=== PATIENT | female | born 1945 | race Caucasian/White ===

== ENCOUNTER 2017-11-28 13:01 | Inpatient (IN) | payer BC ==
[~2017-11-28] VITALS: Ht 157.5 cm; Wt 87.3 kg
[~2017-11-28 13:01] MED LIST: ACET-1600 PO; ADAL40PE SQ; ASCO500T8 PO; ASPI-496 PO; CALC-126 PO; CELE200C PO; CLIN300C8 PO; ESOM20CA PO; HYDR10TA4 PO; LISI-167 PO; LORA10TA75 PO; MAGN400T7 PO; MAGN500C9 PO; METO10TA2 PO; MULT-717 PO; NORT10CA PO; OMEP20TA62 PO; ROSU10TA PO; TOPI50TA35 PO; TOPI50TA8 PO; TRAM50TA2 PO; estrace cream TD
[2017-11-28] MEDS ORDERED: FENTANYL PF 100 MCG/2ML ONE ×2 (13:39→18:00)
[2017-11-28] MEDS ORDERED: MIDAZOLAM 1 MG/ML, 2ML ONE (13:39)
[2017-11-28] MEDS ORDERED: LIDOCAINE GEL 2%, 5ML ONE (13:45)
[2017-11-28 13:51] VITALS: BP 134/81
[2017-11-28] MEDS ORDERED: LACTATED RINGERS 1,000 ML IV SCH (14:01)
[2017-11-28] MEDS ORDERED: OxyconTIN ER 10 MG TAB.ER PO ONE (14:30)
[2017-11-28] MEDS ORDERED: ONDANSETRON ODT 8 MG PO ONE ×2 (14:30→16:00)
[2017-11-28] MEDS ORDERED: ACETAMINOPHEN 500 MG TABLET PO ONE (14:30)
[2017-11-28] MEDS ORDERED: GABAPENTIN 300 MG CAPSULE PO ONE (14:30)
[2017-11-28] MEDS ORDERED: ROCURONIUM 10 MG/ML,10ML ONE (14:32)
[2017-11-28] MEDS ORDERED: SUCCINYLCHOLINE 20 MG/ML, 10ML ONE (14:32)
[2017-11-28] MEDS ORDERED: ROPIvacaine/PF 0.2%, 100ML 550 ML (check volume) INJ ONE (15:30)
[2017-11-28] MEDS ORDERED: ALBUTEROL/IPRATROPIUM 2.5MG/0.5MG, 3 ML NPPB PRN (16:00)
[2017-11-28] MEDS ORDERED: MEPERIDINE/PF 25MG/0.5ML IVPush PRN (16:00)
[2017-11-28] MEDS ORDERED: MIDAZOLAM 1 MG/ML, 2ML IV PRN (16:00)
[2017-11-28] MEDS ORDERED: OXYcodone 5 MG/5 ML ORAL.SOL UDC PO PRN (16:00)
[2017-11-28] MEDS ORDERED: LABETALOL 5MG/ML, 20ML IV PRN (16:00)
[2017-11-28] MEDS ORDERED: MORPHINE SULFATE 4 MG/ML, 1ML IVPush PRN (16:00)
[2017-11-28] MEDS ORDERED: FENTANYL PF 100 MCG/2ML IV PRN (16:00)
[2017-11-28] MEDS ORDERED: DIPHENHYDRAMINE 50 MG/ML, 1ML IVPush PRN (16:00)
[2017-11-28] MEDS ORDERED: PROMETHAZINE 25 MG/ML, 1ML IV PRN (16:00)
[2017-11-28] MEDS ORDERED: hydrALAzine 20 MG/ML, 1ML IV PRN (16:00)
[2017-11-28] MEDS ORDERED: EPHEDRINE 50 MG/ML, 1ML IM PRN (16:00)
[2017-11-28] MEDS ORDERED: SCOPOLAMINE PATCH, 1.5MG PATCH.TD72 TD PRN (16:00)
[2017-11-28] MEDS ORDERED: TRANEXAMIC ACID 100 MG/ML, 10ML ONE (16:44)
[2017-11-28] MEDS ORDERED: DEXAMETHASONE 4 MG/ML, 1ML ONE (17:05)
[2017-11-28] MEDS ORDERED: CEFAZOLIN 1,000 MG ONE (17:05)
[2017-11-28] MEDS ORDERED: PROPOFOL 10 MG/ML, 20ML ONE (17:05)
[2017-11-28] MEDS ORDERED: BUPIVACAINE/PF 0.5% ONE (17:05)
[2017-11-28 18:45] VITALS: BP 120/68
[2017-11-28] MEDS ORDERED: ONDANSETRON ODT 4 MG PO PRN (19:00)
[2017-11-28] MEDS ORDERED: HYDROmorphone 2 MG/ML, 1ML IV PRN (19:00)
[2017-11-28] MEDS ORDERED: HYDROcodone/APAP 5/325 TABLET PO PRN (19:00)
[2017-11-28] MEDS ORDERED: ONDANSETRON 2MG/ML, 2ML IV PRN (19:00)
[2017-11-28] MEDS ORDERED: ACETAMINOPHEN 325 MG TABLET PO PRN (19:00)
[2017-11-28] MEDS: FAMOTIDINE 20 MG TABLET PO SCH (21:00)
[2017-11-28] MEDS: SODIUM CHLORIDE FLUSH 10ML SYR IVF SCH (21:00)
[2017-11-29 00:05] VITALS: BP 105/60
[2017-11-29 04:10] VITALS: BP 91/50
[2017-11-29 06:40] VITALS: BP 115/71
[2017-11-29] MEDS ORDERED: SENNA/DOCUSATE TABLET PO SCH (09:00)
[2017-11-29] MEDS: SODIUM CHLORIDE FLUSH 10ML SYR IVF SCH (09:49)
[2017-11-29] MEDS: FAMOTIDINE 20 MG TABLET PO SCH (09:49)
== END 2017-11-29 13:25 | disposition home health service (06) | DRG 469 ==
LOC: OR 13:01 → 4NOR 18:40 → OR 18:42
PROVIDERS: ADMIT Orthopaedic Surgery; ATTEND Orthopaedic Surgery
PROC: 0SRF0JZ Replacement of Right Ankle Joint with Synthetic Substitute, Open Approach (ICD-10-PCS; principal; 2017-11-28 15:00)
DX: M19.071 Primary osteoarthritis, right ankle and foot (principal); G47.30 Sleep apnea, unspecified; K21.9 Gastro-esophageal reflux disease without esophagitis; Z88.1 Allergy status to other antibiotic agents; Z88.2 Allergy status to sulfonamides; Z88.9 Allergy status to unspecified drugs, medicaments and biological substances; Z88.8 Allergy status to other drugs, medicaments and biological substances
CPT/HCPCS: 76001; C1713; J0690; J1100; J2250; J2704; J2795; J3010; J3490; Q0162; C1776; J0330; J7120